=== PATIENT | female | born 1945 | race Hispanic/Latino ===

== ENCOUNTER 2023-05-03 16:07 | Inpatient (IN) | payer SELFPAY ==
[~2023-05-03 16:07] MED LIST: Iopamidol-370 76% 500 ML MDV (1 ML CHARGE) ONE
[2023-05-03 16:37] LABS: #Eosinphils 0.1 thou/uL (0.0-0.7); #Monocytes 0.7 thou/uL (0.11-0.59); #Neutrophils 5.2 thou/uL (1.40-6.50); %Basophils 0.5 % (0.0-1.0); %Lymphocytes 24.7 % (21.0-51.0); %Monocytes 8.2 % (0.0-10.0); %Neutrophils 65.2 % (42.0-75.0); Hematocrit 34.6 % (36.0-47.0); Hemoglobin 11.4 g/dL (12.0-16.0); Mean Corpuscular HGB CONC 32.9 g/dL (32.0-36.0); Mean Corpuscular Hemoglobin 32.5 pg (27.0-31.0); Mean Corpuscular Volume 98.6 fl (78.0-98.0); Mean Platelet Volume 9.7 fL (7.4-10.4); Platelet Count 259 10x3/uL (130-400); RBC Distribution Width 12.9 % (11.5-14.5); Red Blood Cell (RBC) Count 3.51 mill/uL (4.20-5.40); White Blood Cell (WBC) Count 7.9 10x3/uL (4.8-10.8)
[2023-05-03 16:46] LABS: PTT 31.2 sec (22.9-36.1); Prothrombin Time 15.3 sec (12.0-14.7)
[2023-05-03 16:48] LABS: INR-International Normal Ratio 1.2
[2023-05-03 16:58] LABS: ALT (SGPT) 15 U/L (8-55); AST (SGOT) 30 U/L (5-34); Acetaminophen Less than 10 mcg/mL (10.0-30.0); Alcohol Less than 10.0 mg/dL (Less than 10); Alkaline Phosphatase 121 U/L (40-110); Anion Gap 14 mmol/L (10-20); BUN (Urea Nitrogen) 18 mg/dL (9.8-20.1); Bilirubin, Total 0.7 mg/dL (0.2-1.2); CK (CPK) 82 U/L (29-168); Calc. Creatinine Clearance 0 mL/min (70-130); Calcium 9.2 mg/dL (7.8-10.44); Carbon Dioxide 21 mmol/L (23-31); Chloride 105 mmol/L (98-107); Estimated GFR 70; Globulin 3.2 g/dL (2.4-3.5); Glucose 129 mg/dL (83-110); Potassium 3.9 mmol/L (3.5-5.1); Protein, Total 7.2 g/dL (5.8-8.1); Salicylate Less than 8.0 mg/dL (15.0-30.0); Sodium 136 mmol/L (136-145)
[2023-05-03 17:11] LABS: #Basophils 0.1 thou/uL (0.0-0.2); #Eosinphils 0.1 thou/uL (0.0-0.7); #Monocytes 0.5 thou/uL (0.11-0.59); #Neutrophils 5.7 thou/uL (1.40-6.50); %Basophils 0.6 % (0.0-1.0); %Eosinophils 0.6 % (0.0-10.0); %Lymphocytes 18.4 % (21.0-51.0); %Monocytes 6.9 % (0.0-10.0); %Neutrophils 73.2 % (42.0-75.0); Hematocrit 34.4 % (36.0-47.0); Hemoglobin 11.1 g/dL (12.0-16.0); Mean Corpuscular HGB CONC 32.3 g/dL (32.0-36.0); Mean Corpuscular Hemoglobin 32.2 pg (27.0-31.0); Mean Corpuscular Volume 99.7 fl (78.0-98.0); Mean Platelet Volume 9.7 fL (7.4-10.4); Platelet Count 246 10x3/uL (130-400); RBC Distribution Width 12.7 % (11.5-14.5); Red Blood Cell (RBC) Count 3.45 mill/uL (4.20-5.40); White Blood Cell (WBC) Count 7.8 10x3/uL (4.8-10.8)
[2023-05-03 17:45] LABS: ALT (SGPT) 17 U/L (8-55); AST (SGOT) 33 U/L (5-34); Albumin 3.7 g/dL (3.4-4.8); Alkaline Phosphatase 128 U/L (40-110); Anion Gap 16 mmol/L (10-20); BUN (Urea Nitrogen) 17 mg/dL (9.8-20.1); Bilirubin, Total 0.7 mg/dL (0.2-1.2); Calc. Creatinine Clearance 0 mL/min (70-130); Calcium 8.7 mg/dL (7.8-10.44); Carbon Dioxide 21 mmol/L (23-31); Chloride 101 mmol/L (98-107); Estimated GFR 79; Globulin 3.3 g/dL (2.4-3.5); Glucose 140 mg/dL (83-110); Potassium 4.4 mmol/L (3.5-5.1); Sodium 134 mmol/L (136-145)
[2023-05-03] MEDS ORDERED: Labetalol HCl 100 MG/20 ML VIAL SLOW IVP PRN (18:35)
[2023-05-03] MEDS ORDERED: hydrALAZINE 20 MG/ML VIAL SLOW IVP PRN (18:35)
[2023-05-03] MEDS ORDERED: niCARdipine 25 MG in Sodium Chloride 0.9% 250 ML 250 ML IVPB PRN (18:35)
[2023-05-03 20:31] LABS: Bacteria/HPF None Seen HPF (None Seen); Bilirubin Negative (Negative); Blood, Urine 2+ (Negative); CAUTI Indications for Culture Alt mental st,lethar; Clarity Clear (Clear); Glucose, Urine (Dipstick) Normal (Negative); Ketone, Urine Negative (Negative); Leukocyte Negative Leu/uL (Negative); Nitrite Negative (Negative); Protein, Urine (Dipstick) 20 mg/dL (Neg-Trace); Squamous Epithelial 0-3 HPF (0-3); WBC/HPF 0-3 HPF (0-3); pH, Urine 6.5 (5.0-9.0)
[2023-05-03 20:33] LABS: Specific Gravity, Urine 1.047 (1.002-1.036)
[2023-05-03 20:34] LABS: Urine Culture Reflex No No
[2023-05-03 20:36] LABS: Amphetamine Not Detected (NotDetected); Barbiturates Screen Not Detected (NotDetected); Benzodiazepine Screen Not Detected (NotDetected); Cocaine Metabolite Screen Not Detected (NotDetected); Methadone Not Detected (NotDetected); Methamphetamine Not Detected (NotDetected); Opiate Screen Not Detected (NotDetected); Oxycodone Screen Not Detected (NotDetected); Phencyclidine (PCP) Not Detected (NotDetected); THC/Cannabinoid Screen Not Detected (NotDetected); Tricyclic Screen Not Detected (NotDetected)
[2023-05-03] MEDS ORDERED: Ondansetron PF 4 MG/2 ML Vial IVP PRN (22:00)
[2023-05-03] MEDS ORDERED: Acetaminophen 325 MG TAB PO PRN (22:00)
[2023-05-03] MEDS ORDERED: Sodium Chloride 0.9% 1,000 ML IV SCH (22:00)
[2023-05-03] MEDS ORDERED: Ondansetron ODT 4 MG TAB SL PRN (22:00)
[2023-05-03 22:33] VITALS: BMI 18.3
[2023-05-03] MEDS: Atorvastatin Calcium 40 MG TAB PO SCH (23:25)
[2023-05-04] MEDS: Communication Order-Pharmacy FS SCH ×2 (00:05→19:42)
[2023-05-04] MEDS: Famotidine/PF 20 mg/2ml Vial SLOW IVP SCH ×3 (00:08→20:07)
[2023-05-04] MEDS: Sodium Chloride 0.9% 1,000 ML IV SCH ×2 (00:08→12:18)
[2023-05-04] MEDS: Atorvastatin Calcium 40 MG TAB PO SCH (20:07)
[2023-05-04] MEDS ORDERED: Aspirin 300 MG Suppository PR SCH ×2 (21:00)
[2023-05-05 05:23] LABS: Hematocrit 34.1 % (36.0-47.0); Hemoglobin 11.3 g/dL (12.0-16.0); Mean Corpuscular HGB CONC 33.1 g/dL (32.0-36.0); Mean Corpuscular Volume 96.6 fl (78.0-98.0); Mean Platelet Volume 9.4 fL (7.4-10.4); Platelet Count 228 10x3/uL (130-400); RBC Distribution Width 12.8 % (11.5-14.5); Red Blood Cell (RBC) Count 3.53 mill/uL (4.20-5.40); White Blood Cell (WBC) Count 7.8 10x3/uL (4.8-10.8)
[2023-05-05 05:50] LABS: Anion Gap 11 mmol/L (10-20); BUN (Urea Nitrogen) 16 mg/dL (9.8-20.1); Calc. Creatinine Clearance 45 mL/min (70-130); Calcium 8.6 mg/dL (7.8-10.44); Carbon Dioxide 24 mmol/L (23-31); Cardiac Risk 3.4 (Less than 4.5); Chloride 105 mmol/L (98-107); Cholesterol 126 mg/dl (< 200 Desired); Estimated GFR 78; Glucose 84 mg/dL (83-110); HDL Cholesterol 37 mg/dL (>60 Neg Risk); LDL Cholesterol, Calculated 78 mg/dL; Potassium 3.7 mmol/L (3.5-5.1); Sodium 136 mmol/L (136-145); Triglycerides 54 mg/dL (Less than 150)
[2023-05-05] MEDS ORDERED: Ondansetron PF 4 MG/2 ML Vial IVP PRN (08:08)
[2023-05-05] MEDS ORDERED: Acetaminophen 325 MG TAB PO PRN (08:08)
[2023-05-05] MEDS ORDERED: Aspirin 81 mg Enteric Coated Tablet PO SCH (09:00)
[2023-05-05] MEDS: Famotidine/PF 20 mg/2ml Vial SLOW IVP SCH ×2 (09:41→21:03)
[2023-05-05] MEDS: Atorvastatin Calcium 40 MG TAB PO SCH (21:02)
[2023-05-06 07:31] LABS: Magnesium 1.6 mg/dL (1.6-2.6)
[2023-05-06 07:36] LABS: Troponin I 0.079 ng/mL (< 0.028)
[2023-05-06] MEDS ORDERED: FLU VACC QS2023(65UP)/MF59C/PF 60 MCG/0.5 ML SYRINGE IM ONE (09:00)
[2023-05-06] MEDS: Famotidine/PF 20 mg/2ml Vial SLOW IVP SCH ×2 (10:03→21:02)
[2023-05-06] MEDS: Atorvastatin Calcium 40 MG TAB PO SCH (21:02)
[2023-05-07] MEDS: Famotidine/PF 20 mg/2ml Vial SLOW IVP SCH (11:51)
[2023-05-07 12:20] VITALS: BP 103/61; TEMP 97.2
== END 2023-05-07 14:16 | disposition home or self-care (01) | DRG 63 ==
LOC: ERS 16:07 → ERHOLD 17:38 → CCU 21:40 → 2NO 05-05 06:25 → 2SE 05-06 07:29
PROVIDERS: ADMIT Internal Medicine; ATTEND Internal Medicine
DX: I63.311 Cerebral infarction due to thrombosis of right middle cerebral artery (principal); I10 Essential (primary) hypertension; R29.810 Facial weakness; I70.8 Atherosclerosis of other arteries; I45.10 Unspecified right bundle-branch block
CPT/HCPCS: 0042T; 36415; 70450; 70496; 70498; 70551; 71045; 72125; 80048; 80053; 80061; 80306; 80307; 81001; 82550; 83605; 83735; 83880; 84484; 85025; 85027; 85610; 85730; 86140; 86850; 86900; 86901; 87040; 87086; 93005; 93010; 93306; J1650; J7050; Q9967; S0028